=== PATIENT | female | born 1965 ===

== ENCOUNTER 2020-01-07 14:46 | Inpatient (IN) | payer OTHER, SELFPAY ==
[2020-01-07] VITALS (13 sets, daily range): BP systolic 121–142; BP diastolic 76–88; PULSE 77–122; RESP 18–29; TEMP 36.4–37.3; O2SAT 91–100; BMI 16.8; BMI 16.7
--- NOTE | ~2020-01-07 | XR_ITS ---
EXAMINATION: XR chest 2V EXAM DATE: 01/07/2020 15:45 INDICATION: Shortness of breath, cough, low oxygen saturation. TECHNIQUE: Frontal and lateral projections of the chest obtained and reviewed. Comparison is made to prior examination from 09/18/2017. FINDINGS: There is extensive abnormal lung reticulation on this examination, only evidence of mild ab normal reticulation on the prior rib series. Sparing of the right upper lung zone which could be from emphysema. Also sparing of the medial aspect of the left upper lobe. Differential diagnosis includes chronic interstitial lung disease, acute infection on chronic interstitial lung disease. There is mo re nodular left upper lobe region measuring about 1 x 2 cm, could be more confluent region of infecti on, or postinfectious. Cancer not excludable. Some hyperinflation. Cardiomediastinal silhouette is no rmal. There are bony degenerative changes. IMPRESSION: 1. Extensive abnormal reticulation, chronic or acute on chronic process. CT if indicated clinically. 2. Left upper lobe nodular region, infection, post infectious, or cancer. Follow-up chest x-ray afte r acute symptoms resolve. Reviewed, dictated and finalized at location A. IBILITY AND OCCUPANCY INTERVIEWER IMPRESSION: 1. Extensive abnormal reticulation, chronic or acute on chronic process. CT if indicated clinically. 2. Left upper lobe nodular region, infection, post infectious, or cancer. Foll ow-up chest x-ray after acute symptoms resolve.
--- NOTE | ~2020-01-07 | CT_ITS ---
EXAMINATION: CT chest w con EXAM DATE: 01/08/2020 20:35 INDICATION: Abnormal x-ray. TECHNIQUE: Spiral CT of the chest following intravenous injection of 75 mL Omnipaque 350. Axial, cor onal and sagittal images were reviewed. Coronal maximum intensity pixel images of chest reviewed. T he dose-length product (DLP) for this examination was 133.30 mGy-cm. The exposure was tailored accor ding to patient size (auto mA exposure control), and iterative reconstruction (ASIR) was used as yinka tional dose reduction technique. There is no prior study for comparison. Correlation was made with c hest x-ray from yesterday. FINDINGS: There is severe emphysema. There is left upper lobe bronchiectasis, and masslike opacity m easuring about 4 x 5 cm, with small cystic regions. Diffuse abnormal reticulation probably result of severe emphysema. There are no pleural or pericardial effusions. Tracheobronchial tree is patent. There is no mediastinal, hilar or axillary lymphadenopathy. There is no pneumothorax. Heart nor mal in size. No evidence of coronary arterial calcification. No central pulmonary emboli. Upper ab domen is unremarkable. T11 chronic appearing mild to moderate burst fracture. Mild chronic appearin g compression fractures of T5 and T7. There is severe emphysema. IMPRESSION: 1. Large left upper lobe opacity, appearance more consistent with acute or chronic infectious proces s. Malignancy not excludable. Clinical correlation, consider treating and follow-up required. 2. Severe emphysema and hyperinflation. Reviewed, dictated and finalized at location A. CCO CUTTER IMPRESSION: 1. Large left upper lobe opacity, appearance more consistent with acute or chr onic infectious process. Malignancy not excludable. Clinical correlation, consi tg treating and follow-up required. 2. Severe emphysema and hyperinflation.
--- NOTE | 2020-01-07 15:20 | ECG_ITS ---
Measurements Intervals [place] Rate: 99 P: 89 DC: 145 QRS: 97 QRSD: 82 T: 68 QT: 341 QTc: 439 Interpretive Statements SINUS RHYTHM RIGHT AXIS DEVIATION BASELINE WANDER- I, II, AVR, AVF BORDERLINE ECG Electronically Signed On 01-07-2020 15:39:54 EDUCATION TRAINER by Torsten Her D.O.
[2020-01-07 15:29] LABS: Basophils Percent Auto 0.2 % (0.2-1.2); Hematocrit 42.5 % (37.0-47.0); Hemoglobin 12.3 g/dL (12.0-15.0); Immature Granulocyte Absolute 0.04 K/mm3 (0.00-0.031); Immature Granulocyte Percent A 0.9 % (0-0.5); Lymphocytes Absolute Auto 0.84 K/mm3 (0.9-3.2); Lymphocytes Percent Auto 19.4 % (18.3-44.2); Mean Corpuscular HGB Conc 28.9 g/dl (32-36); Mean Corpuscular Hemoglobin 27.8 pg (26-34); Mean Corpuscular Volume 95.9 fl (80-100); Mean Platelet Volume 9.1 fl (7.4-10.4); Monocytes Absolute Auto 0.5 K/mm3 (0.1-0.6); Monocytes Percent Auto 11.1 % (2.6-8.5); Neutrophils Percent Auto 68.4 % (45.5-73.1); Platelet Count Result 275 k/mm3 (150-375); Red Blood Count 4.43 M/mm3 (4.2-5.4); Red Cell Distribution Width 14.8 % (11.5-14.5); White Blood Count 4.3 K/mm3 (4.5-10.0)
[2020-01-07 15:36] LABS: Alveolar/Arterial O2 Gradient 0.8 mmHg; Base Excess ABG 15.2 mEq/l (+/-2.0); Carboxyhemoglobin 4.5 % THb (0-2.0); Fractional Inspired Oxygen 32 %; HCO3 ABG 48.6 mEq/l (22.0-26.0); Methemoglobin ABG 0.3 %THb (0-1.5); Oxygen Content ABG 16.6 %vol (16.0-22.0); Oxygen Saturation ABG 91.6 % (95.0-100.0); Oxyhemoglobin 89.9 % THb (90.0-100.0); PO2 ABG 79.8 mmHg (80.0-100.0); PO2 FiO2 Ratio Arterial Blood 2.49 %; Reduced Hemoglobin 5.3 %THb (0-5.0); Total Hemoglobin 13.1 g/dL (12.0-18.0)
[2020-01-07 15:39] LABS: Device NASAL CANNULA; Modified Allen's Test Pass; PCO2 ABG 126.1 mmHg (35.0-45.0); Site Drawn RIGHT RADIAL; pH ABG 7.204 (7.350-7.450)
[2020-01-07 15:44] LABS: Hypochromasia 1+ (NORMAL); Platelet Estimate Adequate (Adequate)
[2020-01-07 15:45] LABS: Anisocytosis 2+ (NORMAL)
[2020-01-07 15:46] LABS: Blood Urea Nitrogen 7 mg/dL (7-17); Calcium 8.2 mg/dL (8.4-10.2); Carbon Dioxide > 40 mmol/L (22-30); Chloride 81 mmol/L (98-107); Estimated CRCL calculation 111 ml/min; Estimated Glomerular Filt Rate > 60; Glucose 181 mg/dL (65-105); Potassium 3.6 mmol/L (3.4-5.0); Sodium 132 mmol/L (137-145)
--- NOTE | 2020-01-07 15:50 | ED.WEAKNESS ---
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 Posey typically per father cough no fevers, chills, smokes Related Data Home Medications Medication Instructions Recorded Confirmed albuterol sulfate [Ventolin HFA] INHALATION 01/07/20 01/07/20 clonazepam 01/07/20 fluticasone furoate-vilanterol INHALATION 01/07/20 [Breo Ellipta] fluticasone propionate INTRANASAL 01/07/20 haloperidol 01/07/20 haloperidol decanoate mg IM 01/07/20 lisinopril 01/07/20 nifedipine PO 01/07/20 trazodone 01/07/20 umeclidinium [Incruse Ellipta] INHALATION 01/07/20 Allergies Allergy/AdvReac Type Severity Reaction Status Date / Time meperidine Allergy Unknown unknown Verified 01/07/20 15:08 naproxen Allergy Unknown unknown Verified 01/07/20 15:08 [facility] Social History Social History Gender identity (if verbalized by the patient): Female Course Vital Signs Vital signs: Vital Signs Temperature 99.2 F 01/07/20 15:02 Pulse Rate 112 H 01/07/20 15:02 Respiratory Rate 24 H 01/07/20 15:02 Blood Pressure 122/85 01/07/20 15:02 Pulse Oximetry 93 01/07/20 15:02 Temperature 99.2 F 01/07/20 15:02 Pulse Rate 112 H 01/07/20 15:07 Respiratory Rate 24 H 01/07/20 15:02 Blood Pressure 122/85 01/07/20 15:02 Pulse Oximetry 93 01/07/20 15:02 MDM - Weakness Lab Data Result diagrams: 01/07/20 15:24 01/07/20 15:24 Labs: Lab Results 01/07/20 01/07/20 01/07/20 Range/Units 15:24 15:24 15:28 WBC 4.3 L (4.5-10.0) K/mm3 RBC 4.43 (4.2-5.4) M/mm3 Hgb 12.3 (12.0-15.0) g/dL Hct 42.5 (37.0-47.0) % MCV 95.9 (80-100) fl MCH 27.8 (26-34) pg MCHC 28.9 L (32-36) g/dl RDW 14.8 H (11.5-14.5) % Plt Count 275 (150-375) k/mm3 MPV 9.1 (7.4-10.4) fl Immature Gran % (Auto) 0.9 H (0-0.5) % Neut % (Auto) 68.4 (45.5-73.1) % Lymph % (Auto) 19.4 (18.3-44.2) % Placer % (Auto) 11.1 H (2.6-8.5) % Eos % (Auto) 0.0 (0-4.4) % Baso % (Auto) 0.2 (0.2-1.2) % Lymph # (Auto) 0.84 L (0.9-3.2) K/mm3 Placer # (Auto) 0.5 (0.1-0.6) K/mm3 Eos # (Auto) 0.0 (0-0.3) K/mm3 Baso # (Auto) 0.0 (0.0-0.1) K/mm3 Abs Immat Gran (auto) 0.04 H (0.00-0.031) K/mm3 Absolute Neuts (auto) 3.0 (1.3-6.7) K/mm3 Absolute Nucleated RBC 0.0 (0.0-0.012) K/mm3 Nucleated RBC % 0.0 (0.0-0.2) % Platelet Estimate Adequate (Adequate) Hypochromasia 1+ (NORMAL) Anisocytosis 2+ (NORMAL) Methemoglobin 0.3 (0-1.5) %THb Sodium 132 L (137-145) mmol/L Potassium 3.6 (3.4-5.0) mmol/L Chloride 81 L (98-107) mmol/L Carbon Dioxide > 40 H (22-30) mmol/L BUN 7 (7-17) mg/dL Creatinine 0.30 L (0.7-1.0) mg/dL Estim Creat Clear Calc 111 ml/min Estimated GFR > 60 (59 - ) Glucose 181 H (65-105) mg/dL Calcium 8.2 L (8.4-10.2) mg/dL ABG Data ABG results: 01/07/20 15:28 Puncture Site Right radial ABG pH 7.204 L* ABG pCO2 126.1 H* ABG pO2 79.8 L ABG PO2/FiO2 Ratio 2.49 ABG HCO3 48.6 H ABG O2 Saturation 91.6 L ABG O2 Content 16.6 ABG Base Excess 15.2 A-a Gradient 0.8 Oxyhemoglobin 89.9 L Carboxyhemoglobin 4.5 H Reduced Hemoglobin 5.3 H Total Hemoglobin 13.1 O2 Delivery Device Nasal cannula O2 Liters/Min 3.0 FiO2 32 Discharge Plan Discharge Prescriptions: No Action haloperidol 5 mg tablet RF: 0 trazodone 50 mg tablet RF: 0 clonazepam 0.5 mg tablet RF: 0 nifedipine 60 mg tablet extended release 24hr PO RF: 0 haloperidol decanoate 50 mg/mL solution IM RF: 0 albuterol sulfate [Ventolin HFA] 90 mcg/actuation HFA aerosol inhaler
--- NOTE | 2020-01-07 15:54 | ED.SOB ---
HPI - SOB/Dyspnea General Chief Complaint: Weakness Stated Complaint: low oxygen sats Time Seen by Provider: 01/07/20 15:39 Source: family (father who is at the bedside) and old records reviewed Mode of arrival: wheelchair Limitations: other (the pt is on BiPAP) History of Present Illness HPI Narrative: A 54 y/o female presents to the ED from her [employer] office with worsening SOB for the past couple weeks. The pt is on BiPAP when we entered the room, so the whole HPI and ROS was provided by her father who is at the bedside. The father reports that the pt has been having worsening SOB and has been needing more O2 at home for the past couple weeks. He states that they went to her [employer] office today and that her O2 sat was low, so they told her to come here to be evaluated. He notes that the pt has had a nonproductive cough. He denies the pt having any fevers, N/V/D, or chills. MD elicited complaint: shortness of breath Pertinent past history: COPD and asthma Onset (ago): week(s) (a couple) Timing: progressively worsening Relieving factors: nothing Known history of: COPD and asthma Associated symptoms: cough Treatment prior to arrival: oxygen Related Data Home Medications Medication Instructions Recorded Confirmed albuterol sulfate [Ventolin HFA] 2 puff INHALATION Q4-6H PRN 01/07/20 01/08/20 clonazepam 0.5 mg PO HS PRN 01/07/20 01/08/20 fluticasone propionate 1 spray INTRANASAL DAILY 01/07/20 01/08/20 haloperidol 5 mg PO BID 01/07/20 01/08/20 haloperidol decanoate 50 mg IM MONTHLY 01/07/20 01/08/20 trazodone 50 mg PO HS PRN 01/07/20 01/08/20 Atrovent HFA 2 puff INHALATION QID 01/08/20 01/08/20 acetaminophen 650 mg PO Q6H 01/08/20 01/08/20 calcium carbonate-vitamin D3 2 tablet PO DAILY 01/08/20 01/08/20 folic acid 1 mg PO DAILY 01/08/20 01/08/20 gabapentin 300 mg PO TID 01/08/20 01/08/20 sertraline 25 mg PO DAILY 01/08/20 01/08/20 tramadol 50 mg PO Q6H PRN 01/08/20 01/08/20 Allergies Allergy/AdvReac Type Severity Reaction Status Date / Time meperidine Allergy Unknown unknown Verified 01/07/20 15:08 naproxen Allergy Unknown unknown Verified 01/07/20 15:08 Review of Systems Review of Systems: Narrative: Per father. All systems reviewed & are unremarkable except as noted in HPI and below ROS unobtainable: other (the pt is currently on BiPAP) Constitutional: Constitutional: Denies chills and Denies fever(s) Respiratory: Respiratory: Reports cough and Reports dyspnea Gastrointestinal: Gastrointestinal: Denies diarrhea, Denies nausea and Denies vomiting PMFSH Past Medical History Medical History Anxiety Asthma COPD (chronic obstructive pulmonary disease) H/O: HTN (hypertension) History of angina Surgical History Surgical History History of hysterectomy History of left knee surgery Family History Family History (Updated 01/07/20 @ 20:34 by Shanice Bond RN) Father Acute myocardial infarction Diabetes mellitus Heart disease Mother Breast cancer in female Heart disease Social History Social History (Updated 01/07/20 @ 15:58 by Anthony Mae) Smoking packs per day: 1 Smoking cigarettes per day: 20.0 Years smoked: 40 Smoking pack-years: 40.00 Smoking status: Current every day smoker Tobacco type: cigarettes Alcohol intake: never Substance use: never Gender identity (if verbalized by the patient): Female Spiritual care concerns: No Agree to blood products: Yes Exam Narrative: Exam Narrative: General appearance: Patient on BiPAP, does not communicate verbally, father at the bedside Skin: Normal color Head: Normocephalic, nontraumatic Eyes: Clear conjunctiva ENT: Oropharynx normal, ears normal, nose normal Neck: Supple, nontender Chest and respiratory: Market diminution of air entry bilaterally, mainly during expiration Heart: Regular rate/rhythm Abdomen: Soft, nontender, no or
[2020-01-07] MEDS: ALBUTEROL SULFATE NEB 2.5 MG/3 ML INH 1.25 MG INHALATION (16:10)
[2020-01-07] MEDS: IPRATROPIUM BR 0.02% INH SOLN 0.5 MG/2.5 ML VIAL INHALATION ×2 (16:11→21:00)
--- NOTE | 2020-01-07 16:24 | ECG_ITS ---
Measurements Intervals [place] Rate: 93 P: 87 HI: 151 QRS: 99 QRSD: 81 T: 63 QT: 345 QTc: 431 Interpretive Statements SINUS RHYTHM WITH SINUS ARRHYTHMIA RIGHT AXIS DEVIATION BORDERLINE ECG Electronically Signed On 01-07-2020 18:51:49 GEEK SQUAD MANAGER by Torsten Her D.O.
[2020-01-07] MEDS: methylPREDNISolone SOD SUCC 125 MG VIAL IV PUSH (16:27)
[2020-01-07 17:42] LABS: Alveolar/Arterial O2 Gradient 75.3 mmHg; Base Excess ABG 11.4 mEq/l (+/-2.0); Carboxyhemoglobin 3.6 % THb (0-2.0); Fractional Inspired Oxygen 35 %; HCO3 ABG 42.3 mEq/l (22.0-26.0); Methemoglobin ABG 0.3 %THb (0-1.5); Oxygen Content ABG 15.8 %vol (16.0-22.0); Oxyhemoglobin 87.2 % THb (90.0-100.0); PO2 ABG 62.8 mmHg (80.0-100.0); PO2 FiO2 Ratio Arterial Blood 1.79 %; Reduced Hemoglobin 8.9 %THb (0-5.0); Total Hemoglobin 12.9 g/dL (12.0-18.0)
[2020-01-07 17:45] LABS: Device NON-INVASIVE VENT; Modified Allen's Test Pass; Oxygen Saturation ABG 86.9 % (95.0-100.0); PCO2 ABG 95.9 mmHg (35.0-45.0); Site Drawn RIGHT RADIAL; pH ABG 7.262 (7.350-7.450)
[2020-01-07 17:46] LABS: Non-Invasive Expiratory Pressure 5 CMH2O; Non-Invasive Inspiratory Pressure 15 CMH2O; Non-Invasive Vent Rate 24 /MIN
[2020-01-07] MEDS: LACTATED RINGERS 1,000 ML 100 ML IV CONT (18:21)
[2020-01-07 20:38] LABS: Troponin I < 0.012 ng/mL (0.000-0.034)
[2020-01-07] MEDS: ALBUTEROL SULFATE NEB 2.5 MG/0.5 ML INH 5 MG INHALATION (21:00)
[2020-01-07] MEDS: ACETAMINOPHEN 325 MG TABLET 650 MG PO (22:58)
[2020-01-07 22:59] LABS: Alveolar/Arterial O2 Gradient 118.5 mmHg; Base Excess ABG 12.6 mEq/l (+/-2.0); Carboxyhemoglobin 2.7 % THb (0-2.0); Fractional Inspired Oxygen 35 %; HCO3 ABG 40.4 mEq/l (22.0-26.0); Methemoglobin ABG 0.4 %THb (0-1.5); Oxygen Content ABG 14.9 %vol (16.0-22.0); Oxyhemoglobin 85.1 % THb (90.0-100.0); PO2 ABG 51.3 mmHg (80.0-100.0); PO2 FiO2 Ratio Arterial Blood 1.47 %; Reduced Hemoglobin 11.8 %THb (0-5.0); Total Hemoglobin 12.5 g/dL (12.0-18.0); pH ABG 7.388 (7.350-7.450)
[2020-01-07] MEDS: methylPREDNISolone SOD SUCC 40 MG VIAL IV PUSH (23:02)
[2020-01-07 23:03] LABS: Device BIPAP; Modified Allen's Test Pass; Oxygen Saturation ABG 84.5 % (95.0-100.0); PCO2 ABG 68.6 mmHg (35.0-45.0); Site Drawn LEFT RADIAL
[2020-01-07 23:04] LABS: Expiratory Pressure 5 cmH2O; Inspiratory Pressure 18 cmH2O
[2020-01-07] MEDS: NICOTINE (*PBKC) 21 MG PATCH 1 PATCH TRANSDERM (23:16)
[2020-01-07 23:25] LABS: Hemoglobin A1C 5.7 % (<5.7)
[2020-01-07 23:29] LABS: Blood Urea Nitrogen 5 mg/dL (7-17); Calcium 8.2 mg/dL (8.4-10.2); Carbon Dioxide > 40 mmol/L (22-30); Chloride 83 mmol/L (98-107); Estimated CRCL calculation 85 ml/min; Estimated Glomerular Filt Rate > 60; Glucose 200 mg/dL (65-105); Potassium 3.9 mmol/L (3.4-5.0); Sodium 131 mmol/L (137-145)
[2020-01-07 23:33] LABS: Troponin I < 0.012 ng/mL (0.000-0.034)
[2020-01-08] VITALS (29 sets, daily range): BP systolic 118–139; BP diastolic 75–91; PULSE 85–124; RESP 17–28; TEMP 36.3–37.4; O2SAT 93–98; BMI 18.2
--- NOTE | 2020-01-08 01:07 | HP_ITS ---
Report was originally iSigned by Merary Diop on January 08, 2020 at 2337. Cosigners were updated and the original iSigned signature was removed. DATE OF SERVICE: 01/07/2020 TIME OF EVALUATION: 1949. SUPERVISING PHYSICIAN: For this history and physical is Dr. Efren Puga. CHIEF COMPLAINT: Shortness of breath and hypoxia. HISTORY OF PRESENT ILLNESS: This is a 54-year-old female smoker with COPD/emphysema with history of acute respiratory failure, ultimately requiring tracheostomy, who presented to the emergency department earlier this afternoon for evaluation of shortness of breath. She has chronic dyspnea on exertion and is on oxygen at home. Over the past several weeks, however, she notes progressive dyspnea on lesser and lesser exertion to the point where it sounds like she was using accessory muscles today on arrival to the emergency department. She has an oxygen concentrator at home and is usually on 1 L, but has turned it up to 4 L over the last several days. By chance, she had a routine appointment with sr. operations manager and she was found to be hypoxic and was directed to the emergency department. She was found to have acute on chronic respiratory failure with pretty significant hypercarbia and has been started on BiPAP. At the time of my evaluation, she reports feeling much better with the BiPAP on. She does mention a cough that has really been nonproductive. Other than that, she has been feeling okay. She has not had fever, chills, or sweats. No sinus congestion, rhinorrhea, otalgia, or odynophagia. She denies chest pain and pleuritic pain. No orthopnea, PND, or lower extremity edema. Of note, the EMR has been down for several hours and thus some of this history is limited. MEDICAL HISTORY: 1. COPD/emphysema. 2. Chronic respiratory failure with hypoxia. 3. History of acute respiratory failure, requiring intubation and subsequent tracheostomy. 4. Anxiety. 5. Tobacco dependence. 6. Hypertension. SURGICAL HISTORY: 1. Hysterectomy. 2. Left knee surgery. 3. Tracheostomy. HOME MEDICATION: Please see electronic medical records, which are currently down at the time of this dictation. ALLERGIES: MEPERIDINE, NAPROXEN. SOCIAL HISTORY: The patient lives in [place]. She does answer father as her surrogate decision maker and she wishes to be a full code. She smoked up to 2 packs of cigarettes per day, now smokes about 1 pack a day and has for 30 plus years. She denies any significant alcohol use. No drug use. FAMILY HISTORY: Significant for hypertension and COPD. REVIEW OF SYSTEMS: All systems are reviewed with pertinent positives and negatives as per HPI. No fever, chills, or sweats. No recent cold or flu symptoms. She denies palpitations and pleuritic pain. No nausea, vomiting, or diarrhea. No lower extremity edema. No history of venous thromboembolism. Except as documented, all other systems are reviewed and are negative. PHYSICAL EXAMINATION: VITAL SIGNS: Current vital signs, please see electronic medical records, which are currently down. GENERAL: A well-developed, very thin female, resting comfortably on BiPAP. She is able to speak in full sentences through the BiPAP mask. HEENT: Normocephalic, atraumatic. Pupils reactive. Oral exam not performed as she is on BiPAP. NECK: Supple. No JVD. RESPIRATORY: Lung sounds are significantly diminished throughout with very faint expiratory wheezing. CARDIOVASCULAR: Regular rate and rhythm with S1 and S2. GASTROINTESTINAL: Abdomen is soft, flat, nontender, nondistended with positive bowel sounds. SKIN: Warm and dry. EXTREMITIES: No cyanosis, clubbing, or edema. Radial and pedal pulses intact. NEUROLOGIC: She is alert and oriented x4 at the time of my evalu
[2020-01-08] MEDS: ALBUTEROL SULFATE NEB 2.5 MG/0.5 ML INH 5 MG INHALATION ×4 (01:55→20:09)
[2020-01-08] MEDS: IPRATROPIUM BR 0.02% INH SOLN 0.5 MG/2.5 ML VIAL INHALATION ×4 (01:55→20:09)
[2020-01-08] MEDS: ACETAMINOPHEN 325 MG TABLET 650 MG PO ×3 (05:29→18:10)
[2020-01-08] MEDS: methylPREDNISolone SOD SUCC 40 MG VIAL IV PUSH ×3 (05:31→18:13)
[2020-01-08] MEDS: NICOTINE (*PBKC) 21 MG PATCH 1 PATCH TRANSDERM (08:35)
--- NOTE | 2020-01-08 11:17 | PM.IMPN ---
Progress Note: A&P Assessment and Plan (1) Acute exacerbation of chronic obstructive pulmonary disease: Code(s): J44.1 - Chronic obstructive pulmonary disease with (acute) exacerbation Status: Acute Assessment and Plan: Continue bipap, steroids, bronchodilators, pulmonary toilet (2) Acute on chronic respiratory failure with hypoxia and hypercapnia: Code(s): J96.21 - Acute and chronic respiratory failure with hypoxia; J96.22 - Acute and chronic respiratory failure with hypercapnia Status: Acute Assessment and Plan: Continue bipap, steroids, bronchodilators, pulmonary toilet (3) Tobacco use: Code(s): Z72.0 - Tobacco use Status: Acute Assessment and Plan: Patient is not interested in quitting yet Subjective Date/time seen: 01/08/20 11:17 Interval history: Admitted 01/06 with increased dyspnea, cough. Tolerating bipap. Less sob. But still sob with conversation. Ate a little. Denied pain. Denied GI/ issues. Denied bleeding. Review of Systems Review of Systems: All systems reviewed & are unremarkable except as noted in HPI and below Exam Narrative: Exam Narrative: GENERAL: Frail, gaunt female in NAD HEENT: EOMI, PERRL, sclerae nonicteric, pharyngeal mucosa pink and intact NECK: No JVD CHEST: Coarse BS, increased APD, mildly tachypneic HEART: NL S1/S2, regular, no murmur ABDOMEN: BS+, soft, nontender, no mass, no bruits EXTREMITIES: No cyanosis, edema, or clubbing NEUROLOGIC: CN intact and symmetric to inspection. MUSCULOSKELETAL: Tone and strength symmetric. PSYCH: Alert. Oriented to person, place, and time. Objective Data Vital Signs Vital Signs: Vital Signs - 24 hr 01/07/20 15:00 01/07/20 15:02 01/07/20 15:07 Temperature 99.2 F Pulse Rate 89 112 H 112 H Respiratory Rate 24 H 24 H Blood Pressure 122/85 Pulse Oximetry 96 93 01/07/20 16:28 01/07/20 16:50 01/07/20 18:00 Temperature Pulse Rate 98 89 96 Respiratory Rate 18 18 Blood Pressure 136/88 142/88 H Pulse Oximetry 98 97 01/07/20 18:31 01/07/20 18:51 01/07/20 20:00 Temperature 97.8 F 99.1 F Pulse Rate 77 77 102 H Respiratory Rate 20 20 18 Blood Pressure 121/76 127/77 Pulse Oximetry 91 91 100 01/07/20 21:00 01/07/20 21:10 01/07/20 22:00 Temperature Pulse Rate 102 H 100 122 H Respiratory Rate 29 H 29 H Blood Pressure Pulse Oximetry 96 01/07/20 23:45 01/08/20 00:00 01/08/20 01:55 Temperature 97.5 F L Pulse Rate 105 H 104 H 102 H Respiratory Rate 22 H 28 H Blood Pressure 125/77 Pulse Oximetry 93 93 01/08/20 02:00 01/08/20 02:05 01/08/20 02:07 Temperature Pulse Rate 108 H 101 H 102 H Respiratory Rate 20 28 H Blood Pressure Pulse Oximetry 96 01/08/20 03:59 01/08/20 04:00 01/08/20 06:00 Temperature 97.4 F L Pulse Rate 99 103 H 107 H Respiratory Rate 18 Blood Pressure 118/86 Pulse Oximetry 96 96 01/08/20 08:00 01/08/20 09:55 01/08/20 09:56 Temperature Pulse Rate 110 H 102 H 106 H Respiratory Rate 20 20 Blood Pressure Pulse Oximetry 96 01/08/20 10:09 01/08/20 10:10 01/08/20 10:43 Temperature Pulse Rate 102 H 111 H Respiratory Rate 22 H 19 Blood Pressure Pulse Oximetry 94 94 Intake/Output Intake/Output: Intake & Output 01/05/20 01/06/20 01/07/20 01/08/20 23:59 23:59 23:59 23:59 Intake Total 350 850 Output Total 1500 Balance 350 -650 Meds/Results Medications: Active Medications Generic Name Dose Route Start Last Admin Trade Name Freq PRN Reason Stop Dose Admin Acetaminophen 650 mg 01/07/20 21:52 01/08/20 05:29 Tylenol Tablet PO 650 mg Q6H PRN Administration Pain Rated 1-3 or Fever Acetaminophen 650 mg 01/08/20 12:00 Tylenol Tablet PO Q6HR TED Albuterol 5 mg 01/07/20 20:00 01/08/20 09:50 Albuterol Sulf Neb 2.5mg/0.5ml INHALATION 5 mg Q6HRT TED Administration Albuterol 2 puff 01/08/20 09:56 Proventil Hfa INHALA
[2020-01-08] MEDS: HALOPERIDOL 5 MG TABLET PO ×2 (11:58→18:12)
[2020-01-08] MEDS: SERTRALINE HCL 25 MG TABLET PO (11:58)
[2020-01-08] MEDS: FOLIC ACID 1 MG TABLET PO (11:58)
[2020-01-08] MEDS: GABAPENTIN 300 MG CAPSULE PO ×2 (11:58→21:20)
[2020-01-08] MEDS: FLUTICASONE PROPIONATE 0.05% NA SPR 16 GM BTL (*BKC) 1 SPRAY NASAL (11:58)
[2020-01-08] MEDS: DOXYCYCLINE HYCLATE 100 MG TABLET PO ×2 (11:58→21:20)
[2020-01-08 14:24] LABS: Alveolar/Arterial O2 Gradient 90.7 mmHg; Base Excess ABG 14.9 mEq/l (+/-2.0); Fractional Inspired Oxygen 35 %; HCO3 ABG 44.1 mEq/l (22.0-26.0); Modified Allen's Test Pass; Oxygen Content ABG 16.8 %vol (16.0-22.0); Oxygen Saturation ABG 91.3 % (95.0-100.0); Oxyhemoglobin 91.1 % THb (90.0-100.0); PCO2 ABG 79.6 mmHg (35.0-45.0); PO2 ABG 66.3 mmHg (80.0-100.0); PO2 FiO2 Ratio Arterial Blood 1.89 %; Site Drawn RIGHT RADIAL; Total Hemoglobin 13.1 g/dL (12.0-18.0); pH ABG 7.361 (7.350-7.450)
[2020-01-08 14:25] LABS: Device NON-INVASIVE VENT; Non-Invasive Expiratory Pressure 5 CMH2O; Non-Invasive Inspiratory Pressure 18 CMH2O; Non-Invasive Vent Rate 18 /MIN
[2020-01-09] VITALS (21 sets, daily range): BP systolic 118–142; BP diastolic 75–100; PULSE 79–133; RESP 18–26; TEMP 36.5–37.2; O2SAT 91–99
[2020-01-09] MEDS: methylPREDNISolone SOD SUCC 40 MG VIAL IV PUSH ×5 (00:19→23:55)
[2020-01-09] MEDS: ALBUTEROL SULFATE NEB 2.5 MG/0.5 ML INH 5 MG INHALATION ×4 (01:39→19:48)
[2020-01-09] MEDS: IPRATROPIUM BR 0.02% INH SOLN 0.5 MG/2.5 ML VIAL INHALATION ×4 (01:39→19:48)
[2020-01-09 05:31] LABS: Hematocrit 40.1 % (37.0-47.0); Hemoglobin 12.1 g/dL (12.0-15.0); Mean Corpuscular HGB Conc 30.2 g/dl (32-36); Mean Corpuscular Hemoglobin 27.7 pg (26-34); Mean Corpuscular Volume 91.8 fl (80-100); Mean Platelet Volume 11.1 fl (7.4-10.4); Platelet Count Result 195 k/mm3 (150-375); Red Blood Count 4.37 M/mm3 (4.2-5.4); Red Cell Distribution Width 15.2 % (11.5-14.5); White Blood Count 5.3 K/mm3 (4.5-10.0)
[2020-01-09] MEDS: ACETAMINOPHEN 325 MG TABLET 650 MG PO ×4 (06:10→23:55)
[2020-01-09 08:04] LABS: Alveolar/Arterial O2 Gradient 113.2 mmHg; Base Excess ABG 13.8 mEq/l (+/-2.0); Fractional Inspired Oxygen 36 %; HCO3 ABG 41.4 mEq/l (22.0-26.0); Oxygen Content ABG 16.9 %vol (16.0-22.0); Oxygen Saturation ABG 92.3 % (95.0-100.0); Oxyhemoglobin 91.6 % THb (90.0-100.0); PO2 ABG 65.5 mmHg (80.0-100.0); PO2 FiO2 Ratio Arterial Blood 1.82 %; Total Hemoglobin 13.1 g/dL (12.0-18.0); pH ABG 7.408 (7.350-7.450)
[2020-01-09 08:07] LABS: Device NASAL CANNULA; PCO2 ABG 67.2 mmHg (35.0-45.0); Site Drawn LEFT BRACHIAL
--- NOTE | 2020-01-09 08:33 | PM.CNPUL ---
Assessment and Plan Assessment and plan (1) Bilateral pneumonia: Code(s): J18.9 - Pneumonia, unspecified organism Status: Acute Assessment and Plan: CT chest consistent with bilateral pneumonia even though she doesn't have typical symptoms. - Will start broad spectrum antibiotics with Cefepime and Vancomycin for 10 days and discontinue Ceftriaxone since she already failed outpatient 3rd generation cephalosporin. - agree with doxycyline for atypical coverage. Would continue for 10 days - urine legionella and pneumococcal antigen ordered. - Would repeat CT chest with IV contrast in 6-8 weeks (2) Lung mass: Code(s): R91.8 - Other nonspecific abnormal finding of lung field Status: Acute Assessment and Plan: -AMARJIT decreased in size from CT at [place] reported as 6.5 cm to 4 X 5 cm. This is likely due to overall pneumonia and could represent partially treated pneumonia. (3) Acute on chronic respiratory failure with hypoxia and hypercapnia: Code(s): J96.21 - Acute and chronic respiratory failure with hypoxia; J96.22 - Acute and chronic respiratory failure with hypercapnia Status: Acute Assessment and Plan: - agree with BIPAP and current settings QHS, I'm not sure if she will need Trilogy termite technician - would continue until her pneumonia recovers and then revaluate. (4) Acute exacerbation of chronic obstructive pulmonary disease: Code(s): J44.1 - Chronic obstructive pulmonary disease with (acute) exacerbation Status: Acute Assessment and Plan: - agree with Atrovent/Albuterol Q6h scheduled - agree with solumedrol 40 mg IV Q6h for 5-7 days then discontinue without taper History of Present Illness History of Present Illness Consult date: 01/09/20 Chief complaint: COPD exacerbation Narrative: 54 y/o female with Schizophrenia, COPD, ongonig smoker presents with dyspnea and non productive cough. She normal gets her care at [facility]. Over the last 2-3 months she's had increased cough with dyspnea but no reported fever, no hemoptysis, no significant night sweats. She had AMARJIT mass at [facility] [place] that was reported to be 6.5 cm in greatest dimension. On repeat CT chest yesterday it appears smaller at approximately 4 X 5 cm. She receive a course of Cefdinir ( 3rd generation Cephalosporin) as an outpatient and has been on an off prednisone. Also of note is that her Breo Ellipta dose was increased from 100/25 mcg to 200/25 mcg in August and there is data that this dose of Breo Ellipta can cause increased rates of pneumonia in patients with moderate to severe COPD. The CT yesterday also shows diffuse bilateral interstitial infiltrates consistent with pneumonia/infectious process. Her WBC was normal on admission. Review of Systems Review of Systems: All systems reviewed & are unremarkable except as noted in HPI and below PMFSH Past Medical History Medical History Anxiety Asthma COPD (chronic obstructive pulmonary disease) H/O: HTN (hypertension) History of angina Surgical History Surgical History History of hysterectomy History of left knee surgery Family History Family History (Updated 01/07/20 @ 20:34 by Shanice Bond RN) Father Acute myocardial infarction Diabetes mellitus Heart disease Mother Breast cancer in female Heart disease Social History Social History (Updated 01/07/20 @ 15:58 by Anthony Mae) Smoking packs per day: 1 Smoking cigarettes per day: 20.0 Years smoked: 40 Smoking pack-years: 40.00 Smoking status: Current every day smoker Tobacco type: cigarettes Alcohol intake: never Substance use: never Gender identity (if verbalized by the patient): Female Spiritual care concerns: No Agree to blood products: Yes Meds Home Medications and Allergies Home Medications Medication Instructions Recorded Confirmed Type jannette
--- NOTE | 2020-01-09 09:42 | PM.IMPN ---
Progress Note: A&P Assessment and Plan (1) Bilateral pneumonia: Qualifiers: Pneumonia type: due to unspecified organism Lung location: unspecified part of lung Qualified Code(s): J18.9 - Pneumonia, unspecified organism Code(s): J18.9 - Pneumonia, unspecified organism Status: Acute Assessment and Plan: 01/08 D/w pulmonology that she may have subacute, partially treated pneumonia (failed cefdinir as outpatient) Day 1 Doxy, Vanc, Cefepime (2) Acute exacerbation of chronic obstructive pulmonary disease: Code(s): J44.1 - Chronic obstructive pulmonary disease with (acute) exacerbation Status: Acute Assessment and Plan: Continue bipap, steroids, bronchodilators, pulmonary toilet (3) Acute on chronic respiratory failure with hypoxia and hypercapnia: Code(s): J96.21 - Acute and chronic respiratory failure with hypoxia; J96.22 - Acute and chronic respiratory failure with hypercapnia Status: Acute Assessment and Plan: Continue bipap, steroids, bronchodilators, pulmonary toilet Await Trilogy (4) Tobacco use: Code(s): Z72.0 - Tobacco use Status: Acute Assessment and Plan: Patient is not interested in quitting yet Subjective Date/time seen: 01/09/20 09:42 Interval history: Admitted 3/ with increased dyspnea, cough. Tolerating bipap. Less sob. But still sob with conversation. Ate a little. Denied pain. Denied GI/ issues. Denied bleeding. Review of Systems Review of Systems: All systems reviewed & are unremarkable except as noted in HPI and below Exam Narrative: Exam Narrative: GENERAL: Frail, gaunt female in NAD HEENT: EOMI, PERRL, sclerae nonicteric, pharyngeal mucosa pink and intact NECK: No JVD CHEST: Coarse BS, increased APD, mildly tachypneic HEART: NL S1/S2, regular, no murmur ABDOMEN: BS+, soft, nontender, no mass, no bruits EXTREMITIES: No cyanosis, edema, or clubbing NEUROLOGIC: CN intact and symmetric to inspection. MUSCULOSKELETAL: Tone and strength symmetric. PSYCH: Alert. Oriented to person, place, and time. Objective Data Vital Signs Vital Signs: Vital Signs - 24 hr 01/08/20 09:55 01/08/20 09:56 01/08/20 10:00 Temperature Pulse Rate 102 H 106 H 99 Respiratory Rate 20 20 Blood Pressure Pulse Oximetry 96 01/08/20 10:09 01/08/20 10:10 01/08/20 10:43 Temperature Pulse Rate 102 H 111 H Respiratory Rate 22 H 19 Blood Pressure Pulse Oximetry 94 94 01/08/20 12:00 01/08/20 14:00 01/08/20 14:19 Temperature 99.3 F Pulse Rate 104 H 122 H 117 H Respiratory Rate 18 22 H Blood Pressure 124/86 Pulse Oximetry 96 94 01/08/20 14:33 01/08/20 16:00 01/08/20 17:00 Temperature Pulse Rate 107 H 108 H 119 H Respiratory Rate 23 H 18 25 H Blood Pressure Pulse Oximetry 97 94 01/08/20 18:00 01/08/20 19:44 01/08/20 20:15 Temperature 97.5 F L Pulse Rate 103 H 115 H 90 Respiratory Rate 22 H 21 H Blood Pressure 139/91 H Pulse Oximetry 98 96 01/08/20 20:30 01/08/20 20:42 01/08/20 22:00 Temperature Pulse Rate 90 96 93 Respiratory Rate 21 H 22 H Blood Pressure Pulse Oximetry 01/08/20 22:34 01/08/20 23:54 01/09/20 00:00 Temperature 98.7 F Pulse Rate 99 85 94 Respiratory Rate 24 H 24 H Blood Pressure 127/75 Pulse Oximetry 93 95 01/09/20 01:40 01/09/20 01:42 01/09/20 01:49 Temperature Pulse Rate 85 95 79 Respiratory Rate 21 H 21 H 18 Blood Pressure Pulse Oximetry 96 01/09/20 04:00 01/09/20 08:00 01/09/20 08:50 Temperature 98.7 F 98.4 F Pulse Rate 93 103 H 82 Respiratory Rate 20 22 H 20 Blood Pressure 118/75 136/89 Pulse Oximetry 96 95 01/09/20 09:05 Temperature Pulse Rate 89 Respiratory Rate 18 Blood Pressure Pulse Oximetry Intake/Output Intake/Output: Intake & Output 01/06/20 01/07/20 01/08/20 01/09/20 23:59 23:59 23:59 23:59 Intake Total 350 1620 280 Output Total 1500 600 Balance 350 120 -320
[2020-01-09 09:49] LABS: Blood Urea Nitrogen 11 mg/dL (7-17); Calcium 8.8 mg/dL (8.4-10.2); Carbon Dioxide > 40 mmol/L (22-30); Chloride 86 mmol/L (98-107); Estimated CRCL calculation 91 ml/min; Estimated Glomerular Filt Rate > 60; Glucose 290 mg/dL (65-105); Sodium 132 mmol/L (137-145)
[2020-01-09] MEDS: GABAPENTIN 300 MG CAPSULE PO ×3 (10:56→18:46)
[2020-01-09] MEDS: FAMOTIDINE 20 MG TABLET 40 MG PO (10:57)
[2020-01-09] MEDS: FLUTICASONE PROPIONATE 0.05% NA SPR 16 GM BTL (*BKC) 1 SPRAY NASAL (10:57)
[2020-01-09] MEDS: DOXYCYCLINE HYCLATE 100 MG TABLET PO ×2 (10:57→20:34)
[2020-01-09] MEDS: HALOPERIDOL 5 MG TABLET PO ×2 (10:58→18:46)
[2020-01-09] MEDS: FOLIC ACID 1 MG TABLET PO (10:58)
[2020-01-09] MEDS: SERTRALINE HCL 25 MG TABLET PO (10:58)
[2020-01-09] MEDS: NICOTINE (*PBKC) 21 MG PATCH 1 PATCH TRANSDERM (14:47)
[2020-01-09] MEDS: GUAIFENESIN 200 MG/10 ML UDC PO ×2 (14:48→18:46)
[2020-01-09] MEDS: MELATONIN 5 MG TABLET PO (20:34)
[2020-01-09] MEDS: PANTOPRAZOLE 40 MG TABLET PO (23:55)
[2020-01-10] VITALS (19 sets, daily range): BP systolic 121–159; BP diastolic 68–97; PULSE 69–120; RESP 18–26; TEMP 36.5–36.7; O2SAT 92–97
[2020-01-10] MEDS: IPRATROPIUM BR 0.02% INH SOLN 0.5 MG/2.5 ML VIAL INHALATION ×4 (01:23→21:49)
[2020-01-10] MEDS: ALBUTEROL SULFATE NEB 2.5 MG/0.5 ML INH 5 MG INHALATION ×4 (01:23→21:49)
--- NOTE | 2020-01-10 03:53 | PC.NURSE ---
Daylight Savings Time For Daylight Savings Time Ending in the Fall - Clocks are moved back. For Daylight Savings Time Beginning in the Spring - Clocks are moved ahead. For [facility], the time of change occurs at 0200 hrs. Time is taken from the observer electrical prospecting. This entry on the patient's chart recognizes the change in time reflected during documentation. Example: 2 entries for vital signs may be charted for 0200 hrs.
[2020-01-10 05:04] LABS: Hematocrit 39.1 % (37.0-47.0); Hemoglobin 11.8 g/dL (12.0-15.0); Mean Corpuscular HGB Conc 30.2 g/dl (32-36); Mean Corpuscular Hemoglobin 27.6 pg (26-34); Mean Corpuscular Volume 91.4 fl (80-100); Mean Platelet Volume 9.1 fl (7.4-10.4); Platelet Count Result 340 k/mm3 (150-375); Red Blood Count 4.28 M/mm3 (4.2-5.4); Red Cell Distribution Width 15.4 % (11.5-14.5); White Blood Count 5.8 K/mm3 (4.5-10.0)
[2020-01-10 05:34] LABS: Blood Urea Nitrogen 16 mg/dL (7-17); Calcium 8.9 mg/dL (8.4-10.2); Carbon Dioxide > 40 mmol/L (22-30); Chloride 88 mmol/L (98-107); Estimated CRCL calculation 93 ml/min; Estimated Glomerular Filt Rate > 60; Glucose 162 mg/dL (65-105); Potassium 4.1 mmol/L (3.4-5.0); Sodium 133 mmol/L (137-145)
[2020-01-10] MEDS: methylPREDNISolone SOD SUCC 40 MG VIAL IV PUSH ×3 (05:59→17:53)
[2020-01-10] MEDS: ACETAMINOPHEN 325 MG TABLET 650 MG PO ×3 (05:59→17:53)
[2020-01-10 07:15] LABS: Alveolar/Arterial O2 Gradient 114.4 mmHg; Base Excess ABG 14.4 mEq/l (+/-2.0); Fractional Inspired Oxygen 36 %; HCO3 ABG 41.8 mEq/l (22.0-26.0); Oxygen Content ABG 16.7 %vol (16.0-22.0); Oxygen Saturation ABG 92.5 % (95.0-100.0); PO2 ABG 65.4 mmHg (80.0-100.0); PO2 FiO2 Ratio Arterial Blood 1.82 %; Total Hemoglobin 12.9 g/dL (12.0-18.0); pH ABG 7.418 (7.350-7.450)
[2020-01-10 07:18] LABS: Device NASAL CANNULA; Modified Allen's Test Pass; PCO2 ABG 66.3 mmHg (35.0-45.0); Site Drawn LEFT RADIAL
[2020-01-10] MEDS: GUAIFENESIN 200 MG/10 ML UDC PO ×2 (09:21→16:49)
[2020-01-10] MEDS: GABAPENTIN 300 MG CAPSULE PO ×3 (09:23→16:49)
[2020-01-10] MEDS: DOXYCYCLINE HYCLATE 100 MG TABLET PO ×2 (09:23→21:32)
[2020-01-10] MEDS: HALOPERIDOL 5 MG TABLET PO ×2 (09:23→16:50)
[2020-01-10] MEDS: NICOTINE (*PBKC) 21 MG PATCH 1 PATCH TRANSDERM (09:23)
[2020-01-10] MEDS: SERTRALINE HCL 25 MG TABLET PO (09:23)
[2020-01-10] MEDS: FOLIC ACID 1 MG TABLET PO (09:24)
[2020-01-10] MEDS: FLUTICASONE PROPIONATE 0.05% NA SPR 16 GM BTL (*BKC) 1 SPRAY NASAL (09:24)
[2020-01-10] MEDS: PANTOPRAZOLE 40 MG TABLET PO (09:24)
--- NOTE | 2020-01-10 13:44 | PM.IMPN ---
Progress Note: A&P Assessment and Plan (1) Bilateral pneumonia: Qualifiers: Pneumonia type: due to unspecified organism Lung location: unspecified part of lung Qualified Code(s): J18.9 - Pneumonia, unspecified organism Code(s): J18.9 - Pneumonia, unspecified organism Status: Acute Assessment and Plan: 01/08 D/w pulmonology that she may have subacute, partially treated pneumonia (failed cefdinir as outpatient) 01/09 tolerating oxygen at 4 L w/o BiPAP Day 2 Doxy, Vanc, Cefepime (2) Acute exacerbation of chronic obstructive pulmonary disease: Code(s): J44.1 - Chronic obstructive pulmonary disease with (acute) exacerbation Status: Acute Assessment and Plan: Continue bipap prn, steroids, bronchodilators, pulmonary toilet (3) Acute on chronic respiratory failure with hypoxia and hypercapnia: Code(s): J96.21 - Acute and chronic respiratory failure with hypoxia; J96.22 - Acute and chronic respiratory failure with hypercapnia Status: Acute Assessment and Plan: Continue bipap prn, steroids, bronchodilators, pulmonary toilet Await Trilogy (4) Tobacco use: Code(s): Z72.0 - Tobacco use Status: Acute Assessment and Plan: Patient is not interested in quitting yet Subjective Date/time seen: 01/10/20 13:44 Interval history: Admitted 01/06 with increased dyspnea, cough. Feels much better. Denied pain. Now refuses to wear BiPap. Wants to go home. Transfers from bed to commode. Tolerating diet. Denied pain. Denied GI/ issues. Denied bleeding. Review of Systems Review of Systems: All systems reviewed & are unremarkable except as noted in HPI and below Exam Narrative: Exam Narrative: GENERAL: Frail, gaunt female in NAD HEENT: EOMI, PERRL, sclerae nonicteric, pharyngeal mucosa pink and intact NECK: No JVD CHEST: Coarse BS, increased APD HEART: NL S1/S2, regular, no murmur ABDOMEN: BS+, soft, nontender, no mass, no bruits EXTREMITIES: No cyanosis, edema, or clubbing NEUROLOGIC: CN intact and symmetric to inspection. MUSCULOSKELETAL: Tone and strength symmetric. PSYCH: Alert. Oriented to person, place, and time. Objective Data Vital Signs Vital Signs: Vital Signs - 24 hr 01/09/20 14:00 01/09/20 14:19 01/09/20 14:28 Temperature Pulse Rate 97 98 105 H Respiratory Rate 18 18 Blood Pressure Pulse Oximetry 01/09/20 16:00 01/09/20 18:00 01/09/20 19:32 Temperature 99 F 97.7 F Pulse Rate 105 H 115 H 108 H Respiratory Rate 26 H 20 Blood Pressure 120/77 129/80 Pulse Oximetry 91 96 01/09/20 19:48 01/09/20 19:58 01/09/20 20:00 Temperature Pulse Rate 92 109 H 92 Respiratory Rate 18 18 Blood Pressure Pulse Oximetry 01/09/20 22:00 01/09/20 23:42 01/10/20 00:00 Temperature 98.4 F Pulse Rate 98 79 88 Respiratory Rate 18 Blood Pressure 132/82 Pulse Oximetry 99 01/10/20 01:23 01/10/20 01:41 01/10/20 01:58 Temperature Pulse Rate 82 84 Respiratory Rate 18 18 Blood Pressure Pulse Oximetry 92 01/10/20 03:42 01/10/20 04:00 01/10/20 06:00 Temperature 97.7 F Pulse Rate 83 105 H 72 Respiratory Rate 18 Blood Pressure 133/88 Pulse Oximetry 96 01/10/20 08:00 01/10/20 08:42 01/10/20 08:45 Temperature 98 F Pulse Rate 79 79 Respiratory Rate 18 18 Blood Pressure 159/97 H Pulse Oximetry 94 94 01/10/20 10:00 01/10/20 12:00 Temperature Pulse Rate 114 H 84 Respiratory Rate 18 Blood Pressure Pulse Oximetry 94 Intake/Output Intake/Output: Intake & Output 01/07/20 01/08/20 01/09/20 01/11/20 23:59 23:59 23:59 00:59 Intake Total 350 1620 2160 650 Output Total 1500 2800 Balance 350 120 -640 650 Meds/Results Medications: Active Medications Generic Name Dose Route Start Last Admin Trade Name Freq PRN Reason Stop Dose Admin Acetaminophen 650 mg 01/07/20 21:52 01/08/20 05:29 Tylenol Tablet PO 650 mg Q6H PRN Administration Pa
--- NOTE | 2020-01-10 16:15 | PM.PNPUL ---
Progress Note: A&P Assessment and Plan (1) Lung mass: Code(s): R91.8 - Other nonspecific abnormal finding of lung field Status: Acute Assessment and Plan: Likely related to unresolved pneumonia but cannot rule out malignancy or other process. - Not a candidate for lung biopsy at this time as she is very high risk for serious life threatening complications - would recommend repeat CT chest with IV contrast in 6-8 weeks (2) Bilateral pneumonia: Qualifiers: Pneumonia type: due to unspecified organism Lung location: unspecified part of lung Qualified Code(s): J18.9 - Pneumonia, unspecified organism Code(s): J18.9 - Pneumonia, unspecified organism Status: Acute Assessment and Plan: CT chest consistent with bilateral pneumonia even though she doesn't have typical symptoms. - Will start broad spectrum antibiotics with Cefepime and Vancomycin for 10 days and discontinue Ceftriaxone since she already failed outpatient 3rd generation cephalosporin. - agree with doxycyline for atypical coverage. Would continue for 10 days - urine legionella and pneumococcal antigen ordered. - Would repeat CT chest with IV contrast in 6-8 weeks (3) Acute exacerbation of chronic obstructive pulmonary disease: Code(s): J44.1 - Chronic obstructive pulmonary disease with (acute) exacerbation Status: Acute Subjective Date/time seen: 01/10/20 16:15 Interval history: Feeling better, no complaints. Review of Systems Review of Systems: All systems reviewed & are unremarkable except as noted in HPI and below Exam Const: General: comfortable HENMT: Mouth: Yes Abnormal oral and palatal mucosa present Neck: Neck: supple and no JVD Resp: Effort & Inspection: normal respiratory effort Auscultation: no crackles, no rhonchi, no wheezes and diminished lung sounds Cardio: Rate: regular rate Rhythm: regular rhythm GI: GI Palp: Yes Soft to palpation Auscultation: normal bowel sounds Skin: General skin exam: normal color and no rashes or lesions noted Neuro: Speech: normal speech Extrem: General: normal to inspection, no edema and no pedal edema Objective Data Vital Signs Vital Signs: Vital Signs - 24 hr 01/09/20 16:00 01/09/20 18:00 01/09/20 19:32 Temperature 37.2 C 36.5 C Pulse Rate 105 H 115 H 108 H Respiratory Rate 26 H 20 Blood Pressure 120/77 129/80 Pulse Oximetry 91 96 01/09/20 19:48 01/09/20 19:58 01/09/20 20:00 Temperature Pulse Rate 92 109 H 92 Respiratory Rate 18 18 Blood Pressure Pulse Oximetry 01/09/20 22:00 01/09/20 23:42 01/10/20 00:00 Temperature 36.9 C Pulse Rate 98 79 88 Respiratory Rate 18 Blood Pressure 132/82 Pulse Oximetry 99 01/10/20 01:23 01/10/20 01:41 01/10/20 01:58 Temperature Pulse Rate 82 84 Respiratory Rate 18 18 Blood Pressure Pulse Oximetry 92 01/10/20 03:42 01/10/20 04:00 01/10/20 06:00 Temperature 36.5 C Pulse Rate 83 105 H 72 Respiratory Rate 18 Blood Pressure 133/88 Pulse Oximetry 96 01/10/20 08:00 01/10/20 08:42 01/10/20 08:45 Temperature 36.6 C Pulse Rate 79 79 Respiratory Rate 18 18 Blood Pressure 159/97 H Pulse Oximetry 94 94 01/10/20 08:50 01/10/20 10:00 01/10/20 12:00 Temperature 36.7 C Pulse Rate 83 114 H 101 H Respiratory Rate 18 26 H Blood Pressure 130/88 Pulse Oximetry 97 01/10/20 14:00 01/10/20 14:11 01/10/20 14:21 Temperature Pulse Rate 117 H 120 H 110 H Respiratory Rate 18 18 Blood Pressure Pulse Oximetry Intake/Output Intake/Output: Intake & Output 01/07/20 01/08/20 01/09/20 01/11/20 23:59 23:59 23:59 00:59 Intake Total 350 1620 2160 890 Output Total 1500 2800 Balance 350 120 -640 890 Meds/Results Medications: Active Medications Generic Name Dose Route Start Last Admin Trade Name Freq PRN Reason Stop Dose Admin Acetaminophen 650 mg 01/08/20 12:00 01/10/20 11:59 Tylenol Tablet PO 6
[2020-01-10 17:43] LABS: Vancomycin Trough 9.2 ug/mL (10.0-20.0)
[2020-01-10] MEDS: MELATONIN 5 MG TABLET PO (21:32)
[2020-01-11] VITALS (15 sets, daily range): BP systolic 132–168; BP diastolic 63–94; PULSE 74–111; RESP 16–22; TEMP 36.1–36.7; O2SAT 87–99
[2020-01-11] MEDS: ACETAMINOPHEN 325 MG TABLET 650 MG PO ×2 (00:49→05:58)
[2020-01-11] MEDS: TRAZODONE HCL 50 MG TABLET PO ×2 (00:49→22:00)
[2020-01-11] MEDS: methylPREDNISolone SOD SUCC 40 MG VIAL IV PUSH ×4 (00:49→17:31)
[2020-01-11] MEDS: IPRATROPIUM BR 0.02% INH SOLN 0.5 MG/2.5 ML VIAL INHALATION ×4 (03:49→20:36)
[2020-01-11] MEDS: ALBUTEROL SULFATE NEB 2.5 MG/0.5 ML INH 5 MG INHALATION ×4 (03:49→20:36)
[2020-01-11 05:06] LABS: Hematocrit 40.2 % (37.0-47.0); Hemoglobin 12.2 g/dL (12.0-15.0); Mean Corpuscular HGB Conc 30.3 g/dl (32-36); Mean Corpuscular Hemoglobin 27.5 pg (26-34); Mean Corpuscular Volume 90.5 fl (80-100); Mean Platelet Volume 8.9 fl (7.4-10.4); Platelet Count Result 363 k/mm3 (150-375); Red Blood Count 4.44 M/mm3 (4.2-5.4); Red Cell Distribution Width 15.5 % (11.5-14.5); White Blood Count 7.2 K/mm3 (4.5-10.0)
[2020-01-11 05:29] LABS: Blood Urea Nitrogen 15 mg/dL (7-17); Calcium 8.7 mg/dL (8.4-10.2); Carbon Dioxide > 40 mmol/L (22-30); Chloride 89 mmol/L (98-107); Estimated CRCL calculation 120 ml/min; Estimated Glomerular Filt Rate > 60; Glucose 159 mg/dL (65-105); Sodium 132 mmol/L (137-145)
[2020-01-11 07:35] LABS: Alveolar/Arterial O2 Gradient 109.3 mmHg; Base Excess ABG 7.1 mEq/l (+/-2.0); Fractional Inspired Oxygen 35 %; Oxygen Content ABG 17.2 %vol (16.0-22.0); Oxygen Saturation ABG 95.8 % (95.0-100.0); Oxyhemoglobin 94.3 % THb (90.0-100.0); PCO2 ABG 52.1 mmHg (35.0-45.0); PO2 ABG 79.7 mmHg (80.0-100.0); PO2 FiO2 Ratio Arterial Blood 2.28 %; Total Hemoglobin 12.9 g/dL (12.0-18.0); pH ABG 7.419 (7.350-7.450)
[2020-01-11 07:36] LABS: Site Drawn LEFT BRACHIAL
[2020-01-11 07:37] LABS: Device NON-INVASIVE VENT; Non-Invasive Vent Rate 18 /MIN
[2020-01-11 07:38] LABS: Non-Invasive Expiratory Pressure 5 CMH2O; Non-Invasive Inspiratory Pressure 18 CMH2O
[2020-01-11] MEDS: FLUTICASONE PROPIONATE 0.05% NA SPR 16 GM BTL (*BKC) 1 SPRAY NASAL (08:14)
[2020-01-11] MEDS: PANTOPRAZOLE 40 MG TABLET PO (08:15)
[2020-01-11] MEDS: NICOTINE (*PBKC) 21 MG PATCH 1 PATCH TRANSDERM (08:15)
[2020-01-11] MEDS: FOLIC ACID 1 MG TABLET PO (08:15)
[2020-01-11] MEDS: DOXYCYCLINE HYCLATE 100 MG TABLET PO ×2 (08:15→22:00)
[2020-01-11] MEDS: SERTRALINE HCL 25 MG TABLET PO (08:15)
[2020-01-11] MEDS: HALOPERIDOL 5 MG TABLET PO ×2 (08:16→17:31)
--- NOTE | 2020-01-11 11:35 | PM.IMPN ---
Progress Note: A&P Assessment and Plan (1) Bilateral pneumonia: Qualifiers: Pneumonia type: due to unspecified organism Lung location: unspecified part of lung Qualified Code(s): J18.9 - Pneumonia, unspecified organism Code(s): J18.9 - Pneumonia, unspecified organism Status: Acute Assessment and Plan: 01/08 D/w pulmonology that she may have subacute, partially treated pneumonia (failed cefdinir as outpatient) 01/09 tolerating oxygen at 4 L w/o BiPAP Tolerating bipap at night Day 3 Doxy, Vanc, Cefepime (2) Acute exacerbation of chronic obstructive pulmonary disease: Code(s): J44.1 - Chronic obstructive pulmonary disease with (acute) exacerbation Status: Acute Assessment and Plan: Continue bipap prn, steroids, bronchodilators, pulmonary toilet (3) Acute on chronic respiratory failure with hypoxia and hypercapnia: Code(s): J96.21 - Acute and chronic respiratory failure with hypoxia; J96.22 - Acute and chronic respiratory failure with hypercapnia Status: Acute Assessment and Plan: Continue bipap prn, steroids, bronchodilators, pulmonary toilet Await Trilogy (4) Tobacco use: Code(s): Z72.0 - Tobacco use Status: Acute Assessment and Plan: Patient is not interested in quitting yet Subjective Date/time seen: 01/11/20 11:35 Interval history: Feeling better every day. Tolerating diet. Review of Systems Review of Systems: All systems reviewed & are unremarkable except as noted in HPI and below Exam Narrative: Exam Narrative: GENERAL: Frail, gaunt female in NAD HEENT: EOMI, PERRL, sclerae nonicteric, pharyngeal mucosa pink and intact NECK: No JVD CHEST: diminished BS, increased APD HEART: NL S1/S2, regular, no murmur ABDOMEN: BS+, soft, nontender, no mass, no bruits EXTREMITIES: No cyanosis, edema, or clubbing NEUROLOGIC: CN intact and symmetric to inspection. MUSCULOSKELETAL: Tone and strength symmetric. PSYCH: Alert. Oriented to person, place, and time. Objective Data Vital Signs Vital Signs: Vital Signs - 24 hr 01/10/20 12:00 01/10/20 14:00 01/10/20 14:11 Temperature 98.1 F Pulse Rate 101 H 117 H 120 H Respiratory Rate 26 H 18 Blood Pressure 130/88 Pulse Oximetry 97 01/10/20 14:21 01/10/20 16:00 01/10/20 20:00 Temperature 98.1 F 98.0 F Pulse Rate 110 H 113 H 90 Respiratory Rate 18 26 H 22 H Blood Pressure 132/86 121/68 Pulse Oximetry 93 95 01/10/20 21:51 01/11/20 03:50 01/11/20 05:00 Temperature 97.9 F Pulse Rate 102 H 80 99 Respiratory Rate 18 22 H 22 H Blood Pressure 132/78 Pulse Oximetry 94 97 01/11/20 08:00 01/11/20 08:55 01/11/20 09:03 Temperature 96.9 F L Pulse Rate 93 111 H 99 Respiratory Rate 18 20 20 Blood Pressure 168/94 H Pulse Oximetry 99 87 L Intake/Output Intake/Output: Intake & Output 01/08/20 01/09/20 01/10/20 01/11/20 22:59 22:59 23:59 23:59 Intake Total 1300 Output Total 1000 Balance 300 Meds/Results Medications: Active Medications Generic Name Dose Route Start Last Admin Trade Name Raul PRN Reason Stop Dose Admin Acetaminophen 650 mg 01/08/20 12:00 01/11/20 05:58 Tylenol Tablet PO 650 mg Q6HR TED Administration Albuterol 5 mg 01/07/20 20:00 01/11/20 08:54 Albuterol Sulf Neb 2.5mg/0.5ml INHALATION 5 mg Q6HRT TED Administration Calcium Carbonate 1,000 mg 01/08/20 12:00 01/10/20 11:59 Os-Silas 500 +D Tablet PO 1,000 mg DAILY@1200 TED Administration Doxycycline Hyclate 100 mg 01/08/20 09:00 01/11/20 08:15 Vibramycin Tab PO 100 mg Q12HR TED Administration Fluticasone Propionate 1 spray 01/08/20 09:00 01/11/20 08:14 Flonase 0.05% Nasal [place] NASAL 1 spray DAILY TED Administration Folic Acid 1 mg 01/08/20 09:00 01/11/20 08:15 Folic Acid PO 1 mg DAILY TED Administration Gabapentin 300 mg 01/08/20 09:00 01/11/20 10:51 Neurontin PO Not Given TID [facility]
--- NOTE | 2020-01-11 14:46 | PCDIET ---
Nutrition Follow-Up Complete: Nutrition Diagnosis: Underweight related to history of inadequate energy intake and/or increased energy expenditure due to COPD as evidenced by BMI of 18.2. Nutrition Goal: Patient to meet estimated nutritional needs. Goal not met. Patient consuming 25-50% of most meals on regular, easy to chew diet. Now on NC during day and bipap at night. Recommend Thrive Ice Cream (270kcal, 9g protein) twice daily to supplement intakes. Would also consider medication to promote bowel movement if medically appropriate. Last recorded weight is 44.5 kg which is increased. Bowel Motility: No documented bowel movement. Labs Reviewed: Glu (159), Na (132) Meds Noted: Albuterol, Oscal 500 + D, Cefepime, Folic Acid, Solu Medrol, Vancomycin Additional Notes: No documented skin breakdown. Nutrition Monitoring and Evaluation: Follow up every 3 days.
--- NOTE | 2020-01-11 17:39 | PM.PNPUL ---
Progress Note: A&P Assessment and Plan (1) Lung mass: Code(s): R91.8 - Other nonspecific abnormal finding of lung field Status: Acute Assessment and Plan: Likely related to unresolved pneumonia but cannot rule out malignancy or other process. - Not a candidate for lung biopsy at this time as she is very high risk for serious life threatening complications - would recommend repeat CT chest with IV contrast in 6-8 weeks (2) Bilateral pneumonia: Qualifiers: Pneumonia type: due to unspecified organism Lung location: unspecified part of lung Qualified Code(s): J18.9 - Pneumonia, unspecified organism Code(s): J18.9 - Pneumonia, unspecified organism Status: Acute Assessment and Plan: CT chest consistent with bilateral pneumonia even though she doesn't have typical symptoms. - Will start broad spectrum antibiotics with Cefepime and Vancomycin for 10 days and discontinue Ceftriaxone since she already failed outpatient 3rd generation cephalosporin. - agree with doxycyline for atypical coverage. Would continue for 10 days - urine legionella and pneumococcal antigen ordered. - Would repeat CT chest with IV contrast in 6-8 weeks (3) Acute exacerbation of chronic obstructive pulmonary disease: Code(s): J44.1 - Chronic obstructive pulmonary disease with (acute) exacerbation Status: Acute Subjective Date/time seen: 01/11/20 17:39 Interval history: Feeling better, no complaints. Review of Systems Review of Systems: All systems reviewed & are unremarkable except as noted in HPI and below Exam Const: General: comfortable HENMT: Mouth: Yes Abnormal oral and palatal mucosa present Neck: Neck: supple and no JVD Resp: Effort & Inspection: normal respiratory effort Auscultation: no crackles, no rhonchi, no wheezes and diminished lung sounds Cardio: Rate: regular rate Rhythm: regular rhythm GI: Auscultation: normal bowel sounds Skin: General skin exam: normal color and no rashes or lesions noted Neuro: Speech: normal speech Extrem: General: normal to inspection, no edema and no pedal edema Objective Data Vital Signs Vital Signs: Vital Signs - 24 hr 01/10/20 20:00 01/10/20 21:51 01/11/20 03:50 Temperature 36.7 C Pulse Rate 90 102 H 80 Respiratory Rate 22 H 18 22 H Blood Pressure 121/68 Pulse Oximetry 95 94 01/11/20 05:00 01/11/20 08:00 01/11/20 08:55 Temperature 36.6 C 36.1 C L Pulse Rate 99 93 111 H Respiratory Rate 22 H 18 20 Blood Pressure 132/78 168/94 H Pulse Oximetry 97 99 87 L 01/11/20 09:03 01/11/20 13:52 01/11/20 13:54 Temperature Pulse Rate 99 111 H Respiratory Rate 20 20 Blood Pressure Pulse Oximetry 97 01/11/20 14:05 01/11/20 14:46 Temperature Pulse Rate 100 Respiratory Rate 20 Blood Pressure Pulse Oximetry 91 Intake/Output Intake/Output: Intake & Output 01/08/20 01/09/20 01/10/20 01/11/20 22:59 22:59 23:59 23:59 Intake Total 2020 Output Total 1000 Balance 1020 Meds/Results Medications: Active Medications Generic Name Dose Route Start Last Admin Trade Name Freq PRN Reason Stop Dose Admin Acetaminophen 650 mg 01/08/20 12:00 01/11/20 17:30 Tylenol Tablet PO Not Given Q6HR TED Albuterol 5 mg 01/07/20 20:00 01/11/20 13:52 Albuterol Sulf Neb 2.5mg/0.5ml INHALATION 5 mg Q6HRT TED Administration Calcium Carbonate 1,000 mg 01/08/20 12:00 01/11/20 12:40 Os-Silas 500 +D Tablet PO 1,000 mg DAILY@1200 TED Administration Doxycycline Hyclate 100 mg 01/08/20 09:00 01/11/20 08:15 Vibramycin Tab PO 100 mg Q12HR TED Administration Fluticasone Propionate 1 spray 01/08/20 09:00 01/11/20 08:14 Flonase 0.05% Nasal [place] NASAL 1 spray DAILY TED Administration Folic Acid 1 mg 01/08/20 09:00 01/11/20 08:15 Folic Acid PO 1 mg DAILY TED Administration Gabapentin 300 mg 01/08/20 09:00 01/11/20 17:30 Neurontin PO Not
[2020-01-11] MEDS: MELATONIN 5 MG TABLET PO (22:00)
[2020-01-12] VITALS (16 sets, daily range): BP systolic 133–158; BP diastolic 76–100; PULSE 85–125; RESP 18–24; TEMP 36.5–36.7; O2SAT 93–98
[2020-01-12] MEDS: methylPREDNISolone SOD SUCC 40 MG VIAL IV PUSH ×3 (01:29→17:11)
[2020-01-12] MEDS: ACETAMINOPHEN 325 MG TABLET 650 MG PO ×3 (01:29→17:11)
[2020-01-12] MEDS: IPRATROPIUM BR 0.02% INH SOLN 0.5 MG/2.5 ML VIAL INHALATION ×4 (02:19→22:10)
[2020-01-12] MEDS: ALBUTEROL SULFATE NEB 2.5 MG/0.5 ML INH 5 MG INHALATION ×4 (02:19→22:10)
[2020-01-12 05:38] LABS: Hematocrit 39.2 % (37.0-47.0); Hemoglobin 12.1 g/dL (12.0-15.0); Mean Corpuscular HGB Conc 30.9 g/dl (32-36); Mean Corpuscular Hemoglobin 27.4 pg (26-34); Mean Corpuscular Volume 88.7 fl (80-100); Mean Platelet Volume 8.9 fl (7.4-10.4); Platelet Count Result 353 k/mm3 (150-375); Red Blood Count 4.42 M/mm3 (4.2-5.4); Red Cell Distribution Width 15.5 % (11.5-14.5); White Blood Count 7.4 K/mm3 (4.5-10.0)
[2020-01-12 05:59] LABS: Blood Urea Nitrogen 15 mg/dL (7-17); Calcium 8.8 mg/dL (8.4-10.2); Carbon Dioxide > 40 mmol/L (22-30); Chloride 92 mmol/L (98-107); Estimated CRCL calculation 120 ml/min; Estimated Glomerular Filt Rate > 60; Glucose 145 mg/dL (65-105); Potassium 4.1 mmol/L (3.4-5.0); Sodium 132 mmol/L (137-145)
[2020-01-12] MEDS: PANTOPRAZOLE 40 MG TABLET PO (09:14)
[2020-01-12] MEDS: FLUTICASONE PROPIONATE 0.05% NA SPR 16 GM BTL (*BKC) 1 SPRAY NASAL (09:14)
[2020-01-12] MEDS: GABAPENTIN 300 MG CAPSULE PO (09:14)
[2020-01-12] MEDS: DOXYCYCLINE HYCLATE 100 MG TABLET PO ×2 (09:14→21:49)
[2020-01-12] MEDS: HALOPERIDOL 5 MG TABLET PO ×2 (09:14→17:12)
[2020-01-12] MEDS: FOLIC ACID 1 MG TABLET PO (09:14)
[2020-01-12] MEDS: SERTRALINE HCL 25 MG TABLET PO (09:15)
[2020-01-12] MEDS: NICOTINE (*PBKC) 21 MG PATCH 1 PATCH TRANSDERM (09:21)
[2020-01-12 12:09] LABS: Legionella pneumophila Ag Ur Not Detected (Not Detected)
[2020-01-12 16:27] LABS: Pneumococcal Antigen Urine Not Detected (Not Detected)
--- NOTE | 2020-01-12 18:04 | PM.IMPN ---
Progress Note: A&P Assessment and Plan (1) Bilateral pneumonia: Qualifiers: Pneumonia type: due to unspecified organism Lung location: unspecified part of lung Qualified Code(s): J18.9 - Pneumonia, unspecified organism Code(s): J18.9 - Pneumonia, unspecified organism Status: Acute Assessment and Plan: 01/08 D/w pulmonology that she may have subacute, partially treated pneumonia (failed cefdinir as outpatient) 01/09 tolerating oxygen at 4 L w/o BiPAP Tolerating bipap at night Day 4 Doxy, Vanc, Cefepime (2) Acute exacerbation of chronic obstructive pulmonary disease: Code(s): J44.1 - Chronic obstructive pulmonary disease with (acute) exacerbation Status: Acute Assessment and Plan: Continue bipap prn, steroids(start taper), bronchodilators, pulmonary toilet (3) Acute on chronic respiratory failure with hypoxia and hypercapnia: Code(s): J96.21 - Acute and chronic respiratory failure with hypoxia; J96.22 - Acute and chronic respiratory failure with hypercapnia Status: Acute Assessment and Plan: Continue bipap prn, steroids, bronchodilators, pulmonary toilet Await Trilogy (4) Tobacco use: Code(s): Z72.0 - Tobacco use Status: Acute Assessment and Plan: Patient is not interested in quitting yet Subjective Date/time seen: 01/12/20 18:04 Interval history: Date of visit 01/11. 54-year-old white female with severe COPD admitted with left upper lobe infiltrate masslike on CT. Feeling better, no complaints no real cough for malaise and feeling better in general. Exam Narrative: Exam Narrative: Blood pressure 150/90 pulse 110 regular respirations 18 per minute saturating 95% on 3 L nasal cannula GENERAL: Frail, gaunt female in NAD HEENT: PERRL, sclerae nonicteric, NECK: No JVD CHEST: diminished BS, increased APD HEART: NL S1/S2, regular, no murmur ABDOMEN: BS+, soft, nontender, no mass, EXTREMITIES: No cyanosis, NEUROLOGIC: CN intact and symmetric to inspection. MUSCULOSKELETAL: Tone and strength symmetric. PSYCH: Alert. Oriented to person, place, and time. Objective Data Vital Signs Vital Signs: Vital Signs - 24 hr 01/11/20 20:16 01/11/20 20:36 01/11/20 20:39 Temperature 36.7 C Pulse Rate 74 98 Respiratory Rate 20 22 H Blood Pressure 137/63 Pulse Oximetry 96 92 01/11/20 20:46 01/11/20 20:50 01/12/20 00:00 Temperature Pulse Rate 103 H 98 88 Respiratory Rate 22 H 19 Blood Pressure Pulse Oximetry 93 01/12/20 02:19 01/12/20 02:30 01/12/20 04:00 Temperature 36.6 C Pulse Rate 89 85 99 Respiratory Rate 18 18 20 Blood Pressure 133/80 Pulse Oximetry 97 01/12/20 08:00 01/12/20 08:23 01/12/20 09:12 Temperature 36.7 C Pulse Rate 106 H 96 Respiratory Rate 24 H 24 H 20 Blood Pressure 158/100 H Pulse Oximetry 96 96 93 01/12/20 09:19 01/12/20 14:52 01/12/20 14:59 Temperature Pulse Rate 92 88 90 Respiratory Rate 20 20 20 Blood Pressure Pulse Oximetry 01/12/20 15:51 Temperature 36.5 C Pulse Rate 125 H Respiratory Rate 18 Blood Pressure 150/93 H Pulse Oximetry 95 Intake/Output Intake/Output: Intake & Output 01/09/20 01/10/20 01/11/20 01/12/20 22:59 23:59 23:59 23:59 Intake Total 3400 1110 Output Total 1500 650 Balance 1900 460 Meds/Results Medications: Active Medications Generic Name Dose Route Start Last Admin Trade Name Freq PRN Reason Stop Dose Admin Acetaminophen 650 mg 01/08/20 12:00 01/12/20 17:11 Tylenol Tablet PO 650 mg Q6HR TED Administration Albuterol 5 mg 01/07/20 20:00 01/12/20 14:51 Albuterol Sulf Neb 2.5mg/0.5ml INHALATION 5 mg Q6HRT TED Administration Calcium Carbonate 1,000 mg 01/08/20 12:00 01/12/20 17:12 Os-Silas 500 +D Tablet PO 1,000 mg DAILY@1200 TED Administration Doxycycline Hyclate 100 mg 01/08/20 09:00 01/12/20 09:14 Vibramycin Tab PO 100 mg Q12HR TED Administration Flut
[2020-01-12] MEDS: TRAZODONE HCL 50 MG TABLET PO (21:49)
[2020-01-12] MEDS: MELATONIN 5 MG TABLET PO (21:49)
[2020-01-13] VITALS (8 sets, daily range): BP systolic 108–126; BP diastolic 80–82; PULSE 83–107; RESP 16–20; TEMP 36.6–36.7; O2SAT 94–100
[2020-01-13] MEDS: IPRATROPIUM BR 0.02% INH SOLN 0.5 MG/2.5 ML VIAL INHALATION ×2 (02:05→07:52)
[2020-01-13] MEDS: ALBUTEROL SULFATE NEB 2.5 MG/0.5 ML INH 5 MG INHALATION ×2 (02:05→07:52)
[2020-01-13] MEDS: methylPREDNISolone SOD SUCC 40 MG VIAL IV PUSH (06:52)
[2020-01-13] MEDS: SERTRALINE HCL 25 MG TABLET PO (08:45)
[2020-01-13] MEDS: HALOPERIDOL 5 MG TABLET PO (08:45)
[2020-01-13] MEDS: PANTOPRAZOLE 40 MG TABLET PO (08:45)
[2020-01-13] MEDS: FOLIC ACID 1 MG TABLET PO (08:45)
[2020-01-13] MEDS: GABAPENTIN 300 MG CAPSULE PO (08:45)
[2020-01-13] MEDS: NICOTINE (*PBKC) 21 MG PATCH 1 PATCH TRANSDERM (08:45)
[2020-01-13] MEDS: FLUTICASONE PROPIONATE 0.05% NA SPR 16 GM BTL (*BKC) 1 SPRAY NASAL (08:45)
[2020-01-13] MEDS: DOXYCYCLINE HYCLATE 100 MG TABLET PO (08:46)
--- NOTE | 2020-01-14 17:31 | PM.DS ---
DS: Diagnosis Admitting Diagnosis Admitting Diagnosis: Chronic obstructive pulmonary disease with (acute) exacerbation Discharge Diagnosis (1) Bilateral pneumonia: Qualifiers: Pneumonia type: due to unspecified organism Lung location: unspecified part of lung Qualified Code(s): J18.9 - Pneumonia, unspecified organism Code(s): J18.9 - Pneumonia, unspecified organism Status: Acute Assessment and Plan: 01/08 D/w pulmonology that she may have subacute, partially treated pneumonia (failed cefdinir as outpatient) 01/09 tolerating oxygen at 4 L w/o BiPAP Tolerating bipap at night Finished 5 Day course of Doxy, Vanc, Cefepime and will have full 10 day course of antibiotics(finish with doxy and levafloxaxin) CT scan questionable masslike affect left upper lobe that appeared infectious. She will follow-up with her manager corporate marketing in [place] for follow-up x-rays Cultures were all negative including urinary antigens for pneumococcal and Legionella (2) Acute exacerbation of chronic obstructive pulmonary disease: Code(s): J44.1 - Chronic obstructive pulmonary disease with (acute) exacerbation Status: Acute Assessment and Plan: , steroids(tapered off at discharge per pulmonology), bronchodilators, pulmonary toilet Finish course of antibiotics (3) Acute on chronic respiratory failure with hypoxia and hypercapnia: Code(s): J96.21 - Acute and chronic respiratory failure with hypoxia; J96.22 - Acute and chronic respiratory failure with hypercapnia Status: Acute Assessment and Plan: Responded to bipap prn, steroids, bronchodilators, pulmonary toilet and antibiotics Await Trilogy (4) Tobacco use: Code(s): Z72.0 - Tobacco use Status: Acute Assessment and Plan: Patient is not interested in quitting yet DS: Summary Hospital Course Hospital Course: But 4-year-old female with severe COPD presented in respiratory failure with infiltrate on chest x-ray. She has failed temp partially treated pneumonitis and was placed on Ceftin, doxycycline, and vancomycin. She completed 5 day course of the same which to p.o. doxycycline and levofloxacin on discharge for 5 more days. She was seen in consultation by pulmonology and they suggested to quickly taper her steroids to be off at discharge. She was up about doing well today at discharge. Time Spent with Patient Time attestation: Total time spent providing and/or coordinating discharge services: 35 minutes Exam Narrative: Exam Narrative: Condition on discharge Blood pressure 126/82 pulse is 1 100 mg was sat 100% on 3 L nasal cannula with respirations 16 per minute Lungs prolonged expiratory phase but clear, with diminished lung sounds CV regular rate rhythm Abdomen is soft nontender Extremities without edema She was up about back to her baseline. She will discharge home and follow that with her manager corporate marketing in [place] Discharge Plan Discharge Attending physician on discharge: Julian Nichole Consulting providers: Senthil Ngo Discharging Clinician: Julian Nichole Patient Disposition: Home, Self-Care Activity: as tolerated Diet: regular Patient Instructions: Antibiotic Form, How to Stop Smoking (DC) Stand Alone Forms: General Discharge Information Follow-up/Referrals: UNKNOWN,DOCTOR [Primary Care Provider] - 2 Weeks (see primary care and manager [employer]) Discharge Medications: New doxycycline hyclate 100 mg Tablet 100 mg PO Q12HR Qty: 10 RF: 0 levofloxacin [Levaquin] 500 mg tablet 500 mg PO DAILY Qty: 4 RF: 0 Continued haloperidol 5 mg tablet 5 mg PO BID RF: 0 trazodone 50 mg tablet 50 mg PO HS PRN (Reason: Insomnia) RF: 0 clonazepam 0.5 mg tablet 0.5 mg PO HS PRN (Reason: Anxiety) RF: 0 haloperidol decanoate 50 mg/mL solution 50 mg IM MONTHLY RF: 0 albuterol sulfate [Ventolin HFA] 90 mcg/actuation HFA aerosol inhaler
== END 2020-01-13 12:17 | disposition home or self-care (01) | DRG 140 ==
LOC: ANHED 15:39 → ANHIMU 18:30
PROVIDERS: Emergency Medicine; Internal Medicine Critical Care Medicine; Physician Assistant; Admitting Provider Internal Medicine; Emergency Provider Emergency Medicine; Visit Provider Internal Medicine
DX: J43.9 Emphysema, unspecified (principal); J18.9 Pneumonia, unspecified organism; J96.22 Acute and chronic respiratory failure with hypercapnia; I10 Essential (primary) hypertension; F41.9 Anxiety disorder, unspecified; Z90.710 Acquired absence of both cervix and uterus; F17.210 Nicotine dependence, cigarettes, uncomplicated; Z99.81 Dependence on supplemental oxygen; J96.21 Acute and chronic respiratory failure with hypoxia; R91.8 Other nonspecific abnormal finding of lung field
CPT/HCPCS: 36415; 36600; 71046; 71260; 80048; 80202; 82375; 82805; 83036; 83050; 84484; 85025; 85027; 87070; 87205; 87449; 87804; 87899; 93005; 94002; 94003; 94640; 96365; 96375; 99285; A9270; J0456; J0692; J0696; J1956; J2920; J2930; J3370; J7120; Q9967